=== PATIENT | female | born 1990 | race Caucasian/White ===

== ENCOUNTER 2016-10-20 14:39 | Emergency (ER) | payer OTHER ==
[~2016-10-20 14:39] MED LIST: ACET500CAP PO; ADVIL PO; ASA5GR PO; NORCO1 TA2 PO
== END 2016-10-20 16:42 | disposition home or self-care (01) ==
LOC: ER 14:39
DX: N63 Unspecified lump in breast (principal); F17.200 Nicotine dependence, unspecified, uncomplicated; Z88.5 Allergy status to narcotic agent; Z88.8 Allergy status to other drugs, medicaments and biological substances; Z79.891 Long term (current) use of opiate analgesic; Z79.82 Long term (current) use of aspirin; Z98.51 Tubal ligation status
CPT/HCPCS: 99282; A9270-GY